=== PATIENT | male | born 1970 | race Two or more races ===

== ENCOUNTER 2025-01-22 15:55 | Outpatient (CLI) | payer BC | END 2025-01-22 16:00 | disposition home or self-care (01) | LOC: RAD 15:55 | PROVIDERS: ATTEND Orthopaedic Surgery | DX: M79.642 Pain in left hand (principal) ==

== ENCOUNTER 2025-04-01 08:50 | Outpatient (CLI) | payer BC | END 2025-04-01 08:56 | disposition home or self-care (01) | LOC: RAD 08:50 | PROVIDERS: ATTEND Orthopaedic Surgery | DX: M79.641 Pain in right hand (principal); M79.642 Pain in left hand ==